=== PATIENT | female | born 1940 | race Caucasian/White ===

== ENCOUNTER 2021-03-25 11:19 | Emergency (ER) | payer MEDICARE, OTHER ==
[2021-03-25 12:07] LABS: BASOPHIL 0.8 % (0-2); EOSINOPHIL 3.1 % (0-7); HCT 42.7 % (37.0-47.0); HGB 13.8 g/dl (12.5-16.0); LYMPHOCYTE 41.6 % (15-48); MCH 30.2 pg (25.0-31.0); MCHC 32.3 g/dL (32.0-36.0); MCV 93.4 fL (78.0-100.0); MONOCYTE 6.7 % (0-12); MPV 10.4 fL (6.0-9.5); NEUTROPHIL 47.6 % (41-80); NRBC 0; PLT 248 K/uL (150-400); RBC 4.57 M/uL (4.20-5.40); RDW 13.9 % (11.5-14.0); WBC 10.3 K/uL (4.0-10.5)
[2021-03-25 12:25] LABS: BUN/CREAT RATIO (CALC) 21.4 RATIO; CREATININE 1.03 mg/dL (0.51-0.95); POTASSIUM 4.1 mmol/L (3.5-5.1); URIC ACID 5.9 mg/dL (2.6-6.2)
[2021-03-25] MEDS ORDERED: MEDROL 4MG DOSEP4 MG PO (14:14)
== END 2021-03-25 14:30 | disposition home or self-care (01) ==
LOC: FER 11:19
PROVIDERS: Emergency Medicine
DX: M65.9 Synovitis and tenosynovitis, unspecified (principal); I10 Essential (primary) hypertension; Z88.0 Allergy status to penicillin
CPT/HCPCS: 36415; 73110; 80048; 84550; 85025